=== PATIENT | female | born 1975 | race Hispanic/Latino ===

== ENCOUNTER → 2018-03-05 | Emergency (ER) | payer SELFPAY ==
[~2018-03-05] VITALS: Ht 157.5 cm; Wt 49.9 kg
[2018-03-06 02:20] VITALS: BP 102/73
== END | disposition home or self-care (01) ==
LOC: ER 22:50
DX: L73.9 Follicular disorder, unspecified (principal); F17.210 Nicotine dependence, cigarettes, uncomplicated